=== PATIENT | female | born 1950 | race Caucasian/White ===

== ENCOUNTER 2016-12-05 23:00 | Emergency (ER) | payer MEDICARE, OTHER ==
[2016-12-05 22:20] LABS: BASOPHILS 0.2 %; BASOPHILS ABSOLUTE 0.02 10/3/uL (0.0-0.16); EOSINOPHILS 0.7 %; EOSINOPHILS ABSOLUTE 0.08 10/3/uL (0.0-0.53); HEMATOCRIT 35.3 % (36.0-48.0); HEMOGLOBIN 12.3 g/dL (12.0-16.0); IMMATURE GRANULOCYTES 0.5 %; IMMATURE GRANULOCYTES ABSOLUTE 0.05 10/3/uL (0.0-0.11); LYMPHOCYTES 15.9 %; LYMPHOCYTES ABSOLUTE 1.74 10/3/uL (0.67-4.30); MEAN CORPUS HGB CONC 34.8 g/dL (32.0-36.0); MEAN CORPUSCULAR HEMOGLOB 29.8 pg (26.0-34.0); MEAN CORPUSCULAR VOLUME 85.5 fL (80-100); MEAN PLATELET VOLUME 9.1 fL (9.2-13.0); MONOCYTES 5.1 %; MONOCYTES ABSOLUTE 0.56 10/3/uL (0.21-1.20); NEUTROPHILS 77.6 %; NEUTROPHILS ABSOLUTE 8.47 10/3/uL (2.02-8.40); RBC DISTRIBUTION WIDTH 14.6 % (12.0-16.0); RED CELL COUNT 4.13 10/6/uL (4.0-5.6)
[2016-12-05 22:23] LABS: ER CBC TAT 0 Hrs 09 Mins; MANUAL DIFF NO %; PLATELET COUNT 251 10/3/uL (150-400); WHITE BLOOD CELLS 10.9 10/3/uL (4.5-10.5)
[2016-12-05 22:38] LABS: INTERNATIONAL NORMAL RATI 1.1 UNITS (-); PARTIAL THROMBO TIME 28.5 SEC (22.5-37.2); PROTIME (NOT ORD) 14.3 SEC (12.0-14.5)
[2016-12-05 22:45] LABS: BUN (BLOOD UREA NITROGEN) 16 MG/DL (6-23); CALCIUM, SERUM 8.8 MG/DL (8.5-10.4); CHEST PAIN PROFILE TAT 0 Hrs 31 Mins; CHLORIDE, SERUM 97 MMOL/L (96-112); CO2 (CARBON DIOXIDE) 27 MMOL/L (24-34); CREATININE 1.96 MG/DL (0.55-1.02); GFR AFRICAN AMERICAN 30 ML/MIN (>=60); GFR NON AFRICAN AMERICAN 26 ML/MIN (>=60); GLUCOSE, SERUM 273 MG/DL (60-99); SODIUM, SERUM 135 MMOL/L (135-148); TROPONIN I 0.03 NG/ML (<0.05)
[~2016-12-05 23:00] MED LIST: ALIGN4 MG PO; AMARYL4 PO; CHANTIX0.5 PO; CYMBALTA60 PO; DSS PO; EFFEX75 PO; L80 PO; LAN25 PO; LEVEMFLXPN SC; MAXZIDE PO; MULTIVITAMI1 PO; PRAVAC PO; SYN88 PO; ULTRAM50 PO; XARELTO20 MG PO; XOPENEX HFA INH; ZESTRIL2.5 MG PO
[2017-03-10] MEDS ORDERED: HCTZ25B PO (23:17)
[2017-03-10] MEDS ORDERED: AMARYL2 PO (23:18)
[2017-03-10] MEDS ORDERED: PRAVAC PO (23:18)
[2017-03-10] MEDS ORDERED: MAXZIDE PO (23:18)
[2017-03-10] MEDS ORDERED: TOUJEO SC (23:18)
[2017-03-10] MEDS ORDERED: SYN88 PO (23:19)
[2017-03-10] MEDS ORDERED: ASAB PO (23:19)
[2017-03-10] MEDS ORDERED: LAN25 PO (23:19)
[2017-03-10] MEDS ORDERED: L80 PO (23:20)
[2017-03-10] MEDS ORDERED: NOVOPEN SC (23:20)
[2017-03-10] MEDS ORDERED: EFFEX75 PO (23:21)
[2017-03-19] MEDS ORDERED: COREG3 PO (12:47)
[2017-03-19] MEDS ORDERED: IMDUR30 PO (12:48)
[2017-03-19] MEDS ORDERED: LIPITOR40 PO (12:48)
[2017-04-13] MEDS ORDERED: HYDROCHLOROT25 MG PO (12:40)
[2017-04-14] MEDS ORDERED: ULTRAM50 PO (13:23)
== END 2016-12-06 03:18 | disposition home or self-care (01) ==
LOC: ER 23:00
PROVIDERS: Emergency Medicine
DX: J40 Bronchitis, not specified as acute or chronic (principal); I13.0 Hypertensive heart and chronic kidney disease with heart failure and stage 1 through stage 4 chronic kidney disease, or unspecified chronic kidney disease; E11.22 Type 2 diabetes mellitus with diabetic chronic kidney disease; N18.9 Chronic kidney disease, unspecified; I50.9 Heart failure, unspecified; F32.9 Major depressive disorder, single episode, unspecified; F17.200 Nicotine dependence, unspecified, uncomplicated; Z95.0 Presence of cardiac pacemaker; Z88.1 Allergy status to other antibiotic agents; Z79.4 Long term (current) use of insulin; Z79.899 Other long term (current) drug therapy
CPT/HCPCS: 71020; 80048; 80162; 83735; 84484; 85025; 85610; 85730; 93005; 96374; 99285; A9270-GY; J1885